=== PATIENT | female | born 1980 | race Hispanic/Latino ===

== ENCOUNTER 2020-04-20 18:59 | Emergency (ER) | payer OTHER ==
[~2020-04-20] VITALS: Ht 147.3 cm; Wt 81.6 kg
== END 2020-04-20 19:50 | disposition home or self-care (01) ==
LOC: ER 19:07
DX: R05 Cough (principal); R07.89 Other chest pain; J06.9 Acute upper respiratory infection, unspecified
CPT/HCPCS: 99282

== ENCOUNTER 2022-07-11 23:58 | Emergency (ER) | payer OTHER ==
[~2022-07-11] VITALS: Ht 144.8 cm; Wt 80.3 kg
[2022-07-12] MEDS ORDERED: KETOROLAC TROMETHAMINE 30 MG/ML VIAL IV STA (00:09)
[2022-07-12 00:18] LABS: BASOPHILS % 0.4 % (0.0-1.0); EOSINOPHILS # (AUTO) 0.1 (0.0-0.4); EOSINOPHILS % 0.6 % (0.0-6.0); HEMATOCRIT 35.3 % (34.2-44.1); HEMOGLOBIN 12.2 g/dL (12.0-16.0); LYMPHOCYTES # (AUTO) 2.4 (1.0-3.2); LYMPHOCYTES % 22.5 % (18.0-39.1); MEAN CORPUSCULAR HEMOGLOBIN 30.2 pg (28-32); MEAN CORPUSCULAR HGB CONC 34.6 g/dL (31-35); MEAN CORPUSCULAR VOLUME 87.4 fL (81-99); MONOCYTES # (AUTO) 0.8 (0.2-0.8); MONOCYTES % 7.1 % (4.4-11.3); NEUTROPHILS # (AUTO) 7.5 (2.1-6.9); NEUTROPHILS % 69.3 % (38.7-80.0); PLATELET COUNT 172 x10e3/uL (140-360); RED BLOOD COUNT 4.04 x10e6/uL (3.6-5.1)
[2022-07-12] MEDS ORDERED: NAPROSYN500 MG PO (00:29)
[2022-07-12] MEDS ORDERED: CYCLOBENZAPRINE5 MG PO (00:29)
[2022-07-12 00:40] LABS: ANION GAP 16.8 mmol/L (8-16); BLOOD UREA NITROGEN 9 mg/dL (7-26); BUN/CREATININE RATIO 13 (6-25); CALCIUM 9.5 mg/dL (8.4-10.2); CARBON DIOXIDE 26 mmol/L (22-29); CHLORIDE 100 mmol/L (98-107); CREATINE KINASE 33 IU/L (29-168); CREATININE, SERUM 0.71 mg/dL (0.57-1.11); GLUCOSE 131 mg/dL (74-118); POTASSIUM 3.8 mmol/L (3.5-5.1); SODIUM 139 mmol/L (136-145)
[2022-07-12 01:28] VITALS: BP 123/78
== END 2022-07-12 01:31 | disposition home or self-care (01) ==
LOC: ER 07-12 00:02
DX: M25.511 Pain in right shoulder (principal); M79.18 Myalgia, other site; R73.9 Hyperglycemia, unspecified; R94.31 Abnormal electrocardiogram [ECG] [EKG]
CPT/HCPCS: 36415; 71045; 80048; 82550; 82553; 84484; 85025; 93005; 99284; J1885